=== PATIENT | male | born 1960 | race Caucasian/White ===

== ENCOUNTER 2024-11-12 21:05 | Emergency (ER) | payer OTHER ==
[~2024-11-12] VITALS: Ht 170.2 cm; Wt 77.1 kg
[2024-11-12 20:30] VITALS: O2SAT 91
[2024-11-12 20:40] VITALS: O2SAT 98
[2024-11-12 21:17] VITALS: O2SAT 95
[2024-11-12] MEDS ORDERED: methylPREDNISolone SOD SUCC 125 MG/2 ML VIAL ONE (22:12)
[2024-11-12] MEDS: methylPREDNISolone SOD SUCC 125 MG/2 ML VIAL IM ONE (22:19)
[2024-11-12] MEDS: ALBUTEROL SULFATE 2.5 MG/3 ML NEBU NEB ONE (22:23)
[2024-11-12] MEDS ORDERED: ALBUTEROL SULFATE 2.5 MG/3 ML NEBU ONE (22:26)
[2024-11-13] MEDS ORDERED: PRED50TA PO (03:57)
[2024-11-13] MEDS ORDERED: LORAZEPAM 2 MG/1 ML VIAL ONE (18:25)
== END 2024-11-12 23:03 | disposition left against medical advice (07) ==
LOC: ER 21:05
DX: R06.02 Shortness of breath (principal); R07.9 Chest pain, unspecified; Z79.52 Long term (current) use of systemic steroids
CPT/HCPCS: 99283; 71045; 94640; 93005; 96372; J2919; A4606; A4663; C1758; J2060